=== PATIENT | male | born 1970 | race Caucasian/White ===

== ENCOUNTER 2018-10-16 07:32 | Outpatient (CLI) | payer OTHER, SELFPAY ==
--- NOTE | 2018-10-16 10:18 | DI.MRI_ITS ---
SYMPTOM/DIAGNOSIS: CEREBRAL CYSTS, G93.0 BRAIN MRI: Sagittal T 2 and axial T 2 and axial diffusion and T 2 axial BLADE and T 1 axial and T 2 axial hemo pulse sequences were performed. The study is compared with the prior examination of 11/20/13. Again noted is a large posterior fossa arachnoid cyst. No intracerebral mass is identified. The ventricles are normal. There is no evidence of restricted diffusion. The normal flow void is identified in the cerebral vessels. SUMMARY: When compared with the previous examination of 11/20/13, there has been no appreciable interval change with note again made of a large posterior fossa arachnoid cyst.
== END 2018-10-16 07:52 ==
PROVIDERS: PCP Family Medicine; Visit Provider Family Medicine
DX: G93.0 Cerebral cysts (principal)
CPT/HCPCS: 70551

== ENCOUNTER → 2021-03-20 13:32 | Outpatient (BNVA) | payer MEDICARE, SELFPAY | PROVIDERS: PCP Family Medicine; Referring Provider Family Medicine; Visit Provider Urology | DX: R35.0 Frequency of micturition (principal); Z80.42 Family history of malignant neoplasm of prostate | CPT/HCPCS: 81003; 99204 ==

== ENCOUNTER 2021-03-20 15:28 | Outpatient (REF) | payer MEDICARE, SELFPAY ==
[2021-03-20 22:53] LABS: Anion Gap 11.3 mmol/L (3-11); BUN 11 mg/dL (7-18); CO2 23.7 mmol/L (21.0-32.0); Calcium 8.9 mg/dL (8.5-10.1); Chloride 106 mmol/L (98-107); Glucose 92 mg/dL (74-106); Potassium 3.9 mmol/L (3.5-5.1); Sodium 141 mmol/L (136-145)
[2021-03-21 20:13] LABS: PSA, Diagnostic 1.1 ng/mL (0.0-3.5)
== END 2021-03-20 15:29 | disposition home or self-care (01) ==
LOC: LBN 15:28
PROVIDERS: PCP Family Medicine; Visit Provider Urology
DX: R35.0 Frequency of micturition (principal); Z80.42 Family history of malignant neoplasm of prostate
CPT/HCPCS: 80048; 84153

== ENCOUNTER 2022-04-23 01:21 | Outpatient (CLI) | payer MEDICARE, SELFPAY ==
--- NOTE | 2022-04-23 06:45 | DI.RAD_ITS ---
Exam(s) XR SHOULDER LT COMPLETE 2+V EXAM: XR SHOULDER LT COMPLETE 2+V CLINICAL HISTORY: rotator cuff injury, s46.009a, ? tear or fx. TECHNIQUE: 2D digital imaging was performed. Three views. COMPARISON: No exams were available for comparison FINDINGS: BONES: No acute fracture is present. No bony destructive lesion is seen. JOINTS: No dislocation present. Minimal spurring at the glenoid. AC joint unremarkable. SOFT TISSUE: Normal. IMPRESSION: Minimal degenerative changes. DATA REPOSITORY: RADIATION DOSE DELIVERED:
== END 2022-04-23 01:41 ==
LOC: DI 01:21
PROVIDERS: PCP Family Medicine; Visit Provider Family Medicine
DX: M19.012 Primary osteoarthritis, left shoulder (principal)
CPT/HCPCS: 73030

== ENCOUNTER 2022-06-18 01:57 | Outpatient (CLI) | payer MEDICARE, SELFPAY ==
--- NOTE | 2022-06-18 06:45 | DI.MRI_ITS ---
Exam(s) MR UPPER JOINT LT WO EXAM: MR UPPER JOINT LT WO CLINICAL HISTORY: ROTATOR CUFF INJURY,S46.009A,? ROTATOR CUFF TEAR TECHNIQUE: Multiplanar multisequence MRI of the shoulder was performed. COMPARISON: CR XR SHOULDER LT COMPLETE 2+V from 04/23/2022 FINDINGS: MARROW:There is no evidence of fracture, Hill-Sachs deformity, nor ominous osseous lesions. There are few small degenerative subarticular cysts seen in the posterolateral aspect of the humeral head. ROTATOR CUFF MECHANISM: AC JOINT/ACROMIUM: Moderate degenerative changes noted in the AC joint. Mild impingement. No promin ent downgoing osteophytes. No os acromiale. Supraspinatus: There is significant signal abnormality in the supraspinatus tendon with small area of full-thickness tear superimposed upon articular side partial tear. There is small amount of fluid i n the sub deltoid bursa. No muscle atrophy. Infraspinatus: Some tendinitis signal. No high-grade tear. No atrophy. Teres Minor: Intact. No evidence of tear nor muscle atrophy. Subscapularis/anterior cuff: Intact. No abnormal signal at the level of the multipennate insertional fibers. No significant tear nor atrophy. BICEPS TENDON: Not displaced from the intertubercular groove. Mild tenosynovitis. Not detached from the anterosuperior labrum. LABRUM: There is signal abnormality in the superior labrum posterior to the biceps insertion site con sistent with element of SLAP tear. There is some tearing in the posterior labrum also evident as wel l as some tearing in the anteriorly. Inferior labrum appears intact as does the inferior glenohumera l ligament. There is no evidence of paralabral cyst. GLENOHUMERAL JOINT: No joint effusion nor obvious loose intra-articular bodies. No chondral defects. No osteophytes. No degenerative subarticular cysts. No evidence of capsular tear. The inferior gle nohumeral ligament is intact. QUADRILATERAL SPACE: No evidence of mass in the region of the axillary nerve and dorsal circumflex hu meral vessels. Visualized triceps muscle at this level appears unremarkable. IMPRESSION: 1. Partial thickness tearing and small area of full-thickness tear in the supraspinatus tendon. No r etraction musculotendinous junction. No muscle atrophy. 2. Tendinitis signal in the infraspinatus. No full-thickness tear. No atrophy of the infraspinatus muscle belly. 3. Multilevel tearing in the glenoid labrum including an element of SLAP tear. There is no evidence of paralabral cyst. Mild increased signal in the biceps tendon without evidence of tear but there is an element of tenosynovitis of the biceps tendon sheath. DATA REPOSITORY:
== END 2022-06-18 02:17 ==
LOC: DI 01:57
PROVIDERS: PCP Family Medicine; Visit Provider Family Medicine
DX: S46.092A Other injury of muscle(s) and tendon(s) of the rotator cuff of left shoulder, initial encounter; M75.82 Other shoulder lesions, left shoulder; M75.22 Bicipital tendinitis, left shoulder; S46.812A Strain of other muscles, fascia and tendons at shoulder and upper arm level, left arm, initial encounter
CPT/HCPCS: 73221

== ENCOUNTER → 2022-06-20 08:36 | Outpatient (BNVA) | payer MEDICARE, SELFPAY | PROVIDERS: PCP Family Medicine; Referring Provider Family Medicine; Visit Provider Student in an Organized Health Care Education/Training Program | DX: M75.102 Unspecified rotator cuff tear or rupture of left shoulder, not specified as traumatic (principal); M75.52 Bursitis of left shoulder; S43.432A Superior glenoid labrum lesion of left shoulder, initial encounter; X58.XXXA Exposure to other specified factors, initial encounter | CPT/HCPCS: 99204; 99215 ==

== ENCOUNTER → 2022-07-26 10:10 | Outpatient (BNVA) | payer MEDICARE, SELFPAY | PROVIDERS: PCP Family Medicine; Referring Provider Family Medicine; Visit Provider Surgery | DX: R10.33 Periumbilical pain (principal) | CPT/HCPCS: 99203; 99242 ==

== ENCOUNTER 2022-08-20 01:04 | Outpatient (CLI) | payer MEDICARE, SELFPAY ==
--- NOTE | 2022-08-20 08:03 | DI.CT_ITS ---
Exam(s) CT ABDOMEN PELVIS W EXAM: CT ABDOMEN PELVIS W CLINICAL HISTORY: hx of umbilical hernia,appendectomy.pain umbilical,r10.33 TECHNIQUE: Imaging Protocol: Axial computed tomography images with coronal and sagittal reformatted images were created and reviewed CONTRAST MATERIAL: Intravenous: Omnipaque 350 Contrast volume:100 mL Oral: Yes COMPARISON: No exams were available for comparison FINDINGS: ABDOMEN: Lung Bases: Normal where visualized. Liver: There is decreased attenuation of the liver suggesting fatty infiltration. No measurable mass . Portal, Superior Mesenteric, and Splenic Veins: Unremarkable. Gallbladder and Biliary Tract: There are gallstones present. No biliary ductal dilatation. Pancreas: Normal density, no abnormal calcifications or inflammatory process. Spleen: Normal. Adrenals: No masses seen. Kidneys: Normal size, contour and axis. No radiodense stones or obstructive uropathy. There is a 2.4 cm simple cyst in the midpole of the left kidney. No follow-up is recommended. Abdominal Aorta: Abdominal portion non-dilated. Bowel: No obstruction or bowel wall thickening. No evidence of appendicitis. Peritoneal Cavity: No ascites, collection or mesenteric inflammatory response. No free air. Lymph Nodes: Within normal limits. Bones: Within normal limits for the patient's age. There is L5 spondylolysis and grade 1 spondylolis thesis of L5 on S1. Soft Tissues: There is a very small fat containing supraumbilical hernia. The anterior abdominal wal l is otherwise unremarkable. PELVIS: Bladder: Symmetric distention, no gross wall thickening. Reproductive Organs: Mild prostatic gland enlargement. Lymph Nodes: Within normal limits. Bones: Within normal limits for the patient's age. IMPRESSION: 1. Very small fat containing supraumbilical hernia. No other anterior abdominal wall defects are mas ses are seen. 2. Fatty infiltration of the liver. 3. Cholelithiasis. No biliary ductal dilatation. RADIATION DOSE DELIVERED: 1,895.09mGy.cm Total DLP DATA REPOSITORY: All CT scans at this facility are submitted to the National Radiology Data Registry (NRDR) Dose Index Registry (DIR) with the [employer] (A[employer]). RADIATION OPTIMIZATION: All CT scans at this facility use at least one of these dose optimization te chniques: automated exposure control; mA and/or kV adjustment per patient size (includes targeted exa ms where dose is matched to clinical indication); or iterative reconstruction.
[2022-08-20] MEDS: Omnipaque 350 MG/ML 100 ML BTL IJ (13:12)
[2022-08-20] MEDS: Normal Saline - Diluent 50 ML VIAL IJ (13:13)
[2022-08-20] MEDS: Barium Sulfate 2% W/V-Creamy Vanilla Smoothie 450 ML BTL PO (13:17)
== END 2022-08-20 01:24 ==
LOC: DI 01:04
PROVIDERS: PCP Family Medicine; Visit Provider Surgery
DX: R93.2 Abnormal findings on diagnostic imaging of liver and biliary tract (principal); K80.80 Other cholelithiasis without obstruction; K21.9 Gastro-esophageal reflux disease without esophagitis
CPT/HCPCS: 74177; J3490

== ENCOUNTER → 2022-08-23 08:48 | Outpatient (BNVA) | payer MEDICARE, SELFPAY | PROVIDERS: PCP Family Medicine; Referring Provider Family Medicine; Visit Provider Surgery | DX: K42.9 Umbilical hernia without obstruction or gangrene (principal); K80.20 Calculus of gallbladder without cholecystitis without obstruction; K21.9 Gastro-esophageal reflux disease without esophagitis | CPT/HCPCS: 99213 ==

== ENCOUNTER 2022-08-23 10:01 | Outpatient (REF) | payer MEDICARE, SELFPAY ==
[2022-08-23 10:35] LABS: Abs Immature Grans 0.03 10^3/uL (0.0-0.06); Absolute Basophil Count 0.05 10^3/uL (0.0-0.2); Absolute Eosinophil Count 0.07 10^3/uL (0.0-0.7); Absolute Lymphocyte Count 1.57 10^3/uL (1.2-3.4); Absolute Monocyte Count 0.51 10^3/uL (0.1-0.8); Absolute Neutrophil Count 3.09 10^3/uL (1.2-6.7); Basophils % 0.9; Eosinophils % 1.3; HCT 47.4 % (40.0-50.0); HGB 16.6 g/dL (13.5-17.5); Immature Grans % 0.6; Lymphocytes % 29.5; MCV 88 fL (80-95); Monocytes % 9.6; Neutrophils % 58.1; Platelet Count 161 10^3/uL (130-400); RBC 5.36 10^6/uL (4.36-5.78); WBC 5.32 10^3/uL (4.4-10.8)
[2022-08-23 10:47] LABS: ALT 81 U/L (16-63); AST 49 U/L (15-37); Alkaline Phosphatase 71 U/L (46-116); Anion Gap 9.7 mmol/L (3-11); BUN 15 mg/dL (7-18); Bilirubin, Total 0.4 mg/dL (0.2-1.0); C-Reactive Protein 0.31 mg/dL (0.0-0.3); CO2 25.3 mmol/L (21.0-32.0); CREATININE 1.1 mg/dL (0.70-1.30); Calcium 9.2 mg/dL (8.5-10.1); Calculated LDL 110 mg/dL (<100); Chloride 103 mmol/L (98-107); Cholesterol 195 mg/dL (<200); Estimated GFR 81.28 (mL/min/1.73m2); Glucose 104 mg/dL (74-106); HDL Cholesterol 48 mg/dL (40-60); Sodium 138 mmol/L (136-145); Total Protein 8.2 g/dL (6.4-8.2); Triglyceride 187 mg/dL (<150)
[2022-08-23 10:56] LABS: Hemoglobin A1C 5.6 % (<5.7)
== END 2022-08-23 10:02 | disposition home or self-care (01) ==
LOC: LBN 10:01
PROVIDERS: PCP Family Medicine; Visit Provider Surgery
DX: E66.9 Obesity, unspecified (principal); F41.9 Anxiety disorder, unspecified; G47.33 Obstructive sleep apnea (adult) (pediatric); K21.9 Gastro-esophageal reflux disease without esophagitis; K80.20 Calculus of gallbladder without cholecystitis without obstruction; M10.9 Gout, unspecified; N40.1 Benign prostatic hyperplasia with lower urinary tract symptoms; R10.33 Periumbilical pain; Z09 Encounter for follow-up examination after completed treatment for conditions other than malignant neoplasm; Z82.49 Family history of ischemic heart disease and other diseases of the circulatory system; C50.919 Malignant neoplasm of unspecified site of unspecified female breast
CPT/HCPCS: 80053; 80061; 83036; 85025; 86140

== ENCOUNTER 2022-11-02 02:08 | Outpatient (CLI) | payer MEDICARE, SELFPAY ==
[2022-11-02 10:00] LABS: Lithium 0.4 mmol/l (0.6-1.2)
== END 2022-11-02 02:09 | disposition home or self-care (01) ==
LOC: LBO 02:08
PROVIDERS: PCP Family Medicine; Visit Provider Family Medicine
DX: F31.81 Bipolar II disorder (principal); Z79.899 Other long term (current) drug therapy; Z51.81 Encounter for therapeutic drug level monitoring
CPT/HCPCS: 36415; 80178

== ENCOUNTER 2023-03-04 14:19 | Outpatient (CLI) | payer MEDICARE, SELFPAY ==
--- NOTE | 2023-03-04 14:15 | RT.EKG_ITS ---
APPROVED REPORT Exam: Resting ECG Reason for Exam: Chest tightness Patient Location: O HR:87 bpm ECG Measurements Heart Rate 87 AXIS IA 138 P 23 QRSd 101 QRS 18 QT 369 T 6 QTc 444 Conclusion Sinus rhythm...normal P axis, V-rate 50- 99 Borderline T wave abnormalities...T/QRS ratio < 1/20 or flat T
== END 2023-03-04 14:20 | disposition home or self-care (01) ==
LOC: DI.KIM 14:20
PROVIDERS: PCP Family Medicine; Visit Provider Family Medicine
DX: R07.89 Other chest pain (principal)
CPT/HCPCS: 93010

== ENCOUNTER → 2023-03-06 00:54 | Outpatient (CLI) | payer MEDICARE, SELFPAY ==
--- NOTE | 2023-03-06 07:30 | DI.RAD_ITS ---
Exam(s) XR CHEST 2V PA LATERAL EXAM: XR CHEST 2V PA LATERAL CLINICAL HISTORY: New dyspnea on exertion TECHNIQUE: 2D digital imaging was performed. COMPARISON: No exams were available for comparison FINDINGS: HEART: Normal size. Aorta: Not dilated. PULMONARY VASCULATURE: Normal. LUNGS: Clear. PLEURAL SPACE: No pleural effusion or pneumothorax. BONE:Unremarkable for age. Soft tissues: Unremarkable. IMPRESSION: No acute abnormality. DATA REPOSITORY: RADIATION DOSE DELIVERED:
[2023-03-06 09:55] LABS: D-Dimer 181 ng/mlFEU (<500)
[2023-03-06 10:14] LABS: Lithium 0.4 mmol/l (0.6-1.2)
[2023-03-06 10:15] LABS: Anion Gap 13.2 mmol/L (3-11); BUN 13 mg/dL (7-18); CO2 23.8 mmol/L (21.0-32.0); CREATININE 1.2 mg/dL (0.70-1.30); Calcium 9.3 mg/dL (8.5-10.1); Chloride 104 mmol/L (98-107); Estimated GFR 72.76 (mL/min/1.73m2); Glucose 125 mg/dL (74-106); Potassium 3.9 mmol/L (3.5-5.1); Sodium 141 mmol/L (136-145)
== END ==
PROVIDERS: PCP Family Medicine; Referring Provider Family Medicine; Visit Provider Family Medicine
DX: R06.09 Other forms of dyspnea (principal); F31.81 Bipolar II disorder
CPT/HCPCS: 36415; 80048; 71046; 80178; 85379

== ENCOUNTER → 2023-04-29 01:08 | Outpatient (CLI) | payer MEDICARE, SELFPAY ==
--- NOTE | 2023-04-29 09:30 | DI.US_ITS ---
APPROVED REPORT EXAM: Comprehensive 2D, Doppler, and color-flow Echocardiogram Patient Location: Out-Patient Manufacturing Industrial Engineer: Shaheen Broderick RDCS (AE) Indications: new onset dyspnea on exertion Conclusion 1. LA mildly dilated, other chambers normal 2. Normal LV systolic function, EF 55-60%. Normal RV function. 3. Anatomically normal valves. No significant regurgitation or stenosis. 4. No intrtacardiac shunt 5. No pericardial effusion. Wall motion Left Ventricle The left ventricle is normal size. The left ventricular systolic function is normal. The left ventric ular ejection fraction is within the normal range. There is normal left ventricular wall thickness. T here is normal LV segmental wall motion. There is no ventricular septal defect visualized. LVEF is 55 -60%. Right Ventricle The right ventricle is normal size. Right ventricular systolic function is grossly normal. Atria Left atrium is mildly dilated. Right atrium is mildly dilated. The interatrial septum is intact with no evidence for an atrial septal defect. Aortic Valve The aortic valve is normal in structure. Aortic valve is trileaflet. There is no aortic valvular sten osis. No aortic regurgitation is present. Mitral Valve Mild mitral annular calcification. No evidence of mitral valve stenosis. Trivial mitral regurgitation . Tricuspid Valve The tricuspid valve is normal in structure. There is no tricuspid valve stenosis. Trace tricuspid reg urgitation. Unable to assess PA pressure. Pulmonic Valve The pulmonary valve is normal in structure. There is no pulmonic valvular stenosis. Trivial pulmonic regurgitation. Great Vessels The aortic root is normal in size. Ascending aorta is not well visualized. Aortic arch is not well vi sualized. IVC is normal in size and collapses >50% with inspiration. Pericardium There is no pericardial effusion. 2D Dimensions IVSD d PLAX 0.82 cm M: 0.6-1.2 Ao Root d 3.43 cm M: 3.1 - 3.7 LVPW d PLAX 0.76 cm M: 0.6 - 1.2 LVID d PLAX 5.13 cm M: 4.2 - 5.8 LVDs 3.49 cm M: 2.5 - 4.0 LV EF Teichholz 59.7 % FS 31.94 % LV EDV (Teich) 125.6 mL LV ESV (Teich) 50.6 mL Stroke Vol Index (Teich) 30.24 M-Mode TAPSE 2.88 cm (M/F) >1.7 Auto EF LV EDV A4C 253.8 mL LV EDV A2C 123.0 mL LV EDV BP 178.3 mL LV ESV A4C 110.5 mL LV ESV A2C 52.2 mL LV ESV BP 78.4 mL LVEF(%) A4C 56.5 % LVEF(%) A2C 57.5 % LVEF(%) BP 56.0 % LV SV A4C 143.3 ml LV SV A2C 70.7 ml LV SV BP 99.9 ml LV CO A4C 10.3 L/min LV CO A2C 4.5 L/min LV CO BP 7.4 L/min HR A4C 71.86 BPM HR A2C 64.17 BPM LV EDV Index (BP) LA Volume LA Length A4C 5.9 cm LA Length A2C 4.7 cm LA Area A4C s 17.27 cm2 LA Area A2C s 13.23 cm2 LA Vol A4C A-L 43.18 mL LA Vol A2C A-L 31.36 mL LA Vol Biplane A-L 40.9 mL LA Vol/BSA A4C A-L LA Vol/BSA A2C A-L LA Vol/BSA BP A-L 16.5 mL/m2 LA Vol A4C MOD 44.0 mL LA Vol A2C MOD 28.7 mL LA Vol BP MOD 38.2 mL RA Volume RA Area A4C 14.5 cm2 RA ESV A4C (A-L) 38.7mL RA Vol/BSA A4C A-L RA Length A4C 4.6 cm RA ESV A4C (MOD) 37.4mL LV Diastology MV E' medial 0.092 (>0.07 m/s) MV E Vmax 0.76 (0.4-1.3 m/s) MV E/E' MED 8.20 (<14) MV A Vmax 0.65 (0.4-1.3 m/s) MV E' lateral 0.124 (>0.1 m/s) E/A Ratio 1.2 MV E/E' LAT 6.14 (<14) MV E' Average 0.108 m/s MV E/E'(average) 7.02 Aortic Valve AoV Vmax 1.20 m/s LVOT Vmax 0.89 m/s AoV Peak Grad 5.8 mmHg LVOT Peak Grad 3.2 mmHg AoV Area (Vmax) 2.64 cm2 LVOT VTI 0.198 m AoV VTI 0.232 m LVOT Mean Grad 1.5 mmHg AoV Mean Hubert. 0.87 m/s LVOT SV 70.79 mL AoV Mean Grad 3.4 mmHg LVOT Diam s 2.10 cm AoV Area (VTI) 3.05 cm2 Velocity Ratio 0.74 Mitral Valve MV DT 197 (160-240 msec) Pulmonary Valve PV Vmax 1.02 (0.5-1.5 m/s) RVOT Vmax 0.55 m/s PV Peak Grad 4.1 mmHg RVOT Peak Gr. 1.2 mmHg PV Mean Hubert 0.78 m/s RVOT VTI 0.116 m PV Mean Grad 2.6 mmHg RVOT Mean Gr. 0.6 mmHg
== END ==
PROVIDERS: PCP Family Medicine; Visit Provider Family Medicine
DX: R06.09 Other forms of dyspnea (principal)
CPT/HCPCS: 93306

== ENCOUNTER 2023-07-12 09:09 | Outpatient (REF) | payer MEDICARE, SELFPAY ==
[2023-07-12 23:57] LABS: Campylobacter PCR Negative (Negative); Salmonella PCR Negative (Negative); Shiga Toxin PCR Negative (Negative); Shigella/Enteroinvasive Ecoli Negative (Negative)
== END 2023-07-12 09:10 | disposition home or self-care (01) ==
LOC: LBN 09:09
PROVIDERS: PCP Family Medicine; Visit Provider Family Medicine
DX: R19.7 Diarrhea, unspecified (principal)
CPT/HCPCS: 87329; 87505; 87177

== ENCOUNTER 2024-01-31 02:45 | Outpatient (CLI) | payer MEDICARE, SELFPAY ==
[2024-01-31 09:10] LABS: Lithium 0.6 mmol/L (0.6-1.2)
[2024-01-31 09:12] LABS: Anion Gap 10.1 mmol/L (3-11); BUN 10 mg/dL (7-18); CO2 25.9 mmol/L (21.0-32.0); CREATININE 1.1 mg/dL (0.70-1.30); Chloride 106 mmol/L (98-107); Estimated GFR 80.27 (mL/min/1.73m2); Glucose 118 mg/dL (74-106); Potassium 4.3 mmol/L (3.5-5.1); Sodium 142 mmol/L (136-145)
== END 2024-01-31 02:46 | disposition home or self-care (01) ==
LOC: LBO 02:45
PROVIDERS: PCP Family Medicine; Referring Provider Family Medicine; Visit Provider Family Medicine
DX: Z79.899 Other long term (current) drug therapy (principal); K75.81 Nonalcoholic steatohepatitis (NASH)
CPT/HCPCS: 36415; 80048; 80178

== ENCOUNTER 2024-06-29 12:49 | Outpatient (CLI) | payer MEDICARE, SELFPAY ==
--- NOTE | 2024-06-29 11:15 | DI.RAD_ITS ---
Exam(s) XR FOOT LT COMPLETE EXAM: XR FOOT LT COMPLETE CLINICAL HISTORY: suspect L calcaneal bone spur,pain lt heel,foot,h/o gout,m79.673,m77.50. TECHNIQUE: 2D digital imaging was performed of the left foot. Three images were obtained. AP, obli que and lateral views were obtained. COMPARISON: No exams were available for comparison FINDINGS: BONES: No acute fracture is present. No bony destructive lesion is seen. There is an enthesophyte at the posterior calcaneus. There is a small plantar calcaneal spur. JOINTS: No dislocation present. The joint spaces are well maintained. SOFT TISSUE: Normal. IMPRESSION: 1. Small plantar calcaneal spur. 2. Posterior calcaneal enthesophyte. DATA REPOSITORY: RADIATION DOSE DELIVERED:
== END 2024-06-29 13:09 ==
PROVIDERS: PCP Family Medicine; Visit Provider Nurse Practitioner Adult Health
DX: Z87.39 Personal history of other diseases of the musculoskeletal system and connective tissue (principal); M79.672 Pain in left foot; M77.52 Other enthesopathy of left foot and ankle
CPT/HCPCS: 73630

== ENCOUNTER → 2024-08-19 09:15 | Outpatient (BNVA) | payer MEDICARE, SELFPAY | PROVIDERS: PCP Family Medicine; Referring Provider Family Medicine; Visit Provider Podiatrist | DX: M72.2 Plantar fascial fibromatosis (principal); M62.9 Disorder of muscle, unspecified; M79.672 Pain in left foot; Z87.39 Personal history of other diseases of the musculoskeletal system and connective tissue | CPT/HCPCS: 29580; 29850 ==

== ENCOUNTER → 2024-09-08 08:18 | Outpatient (BNVA) | payer MEDICARE, SELFPAY | PROVIDERS: PCP Family Medicine; Referring Provider Family Medicine; Visit Provider Podiatrist | DX: M72.2 Plantar fascial fibromatosis (principal); M25.572 Pain in left ankle and joints of left foot; M66.872 Spontaneous rupture of other tendons, left ankle and foot | CPT/HCPCS: 99213 ==

== ENCOUNTER 2024-12-11 03:28 | Outpatient (CLI) | payer MEDICARE, SELFPAY ==
[2024-12-11 13:43] LABS: Lithium 0.3 mmol/L (0.6-1.2)
== END 2024-12-11 03:29 | disposition home or self-care (01) ==
PROVIDERS: Absent Provider Family Medicine; PCP Family Medicine; Referring Provider Family Medicine; Visit Provider Family Medicine
DX: R45.86 Emotional lability (principal)
CPT/HCPCS: 36415; 80178

== ENCOUNTER 2025-02-05 13:00 | Outpatient (CLI) | payer MEDICARE, SELFPAY ==
[2025-02-05 13:14] LABS: HCT 44.9 % (40.0-50.0); HGB 15.6 g/dL (13.5-17.5); MCH 31.9 pg (27.0-33.0); MCHC 34.7 % (32.0-36.0); MCV 92 fL (80-95); MPV 8.9 fL (8.0-11.0); Platelet Count 167 10^3/uL (130-400); RBC 4.89 10^6/uL (4.36-5.78); RDW 12.5 % (11.8-14.1); RDW-SD 42.1 fL; WBC 7.54 10^3/uL (4.4-10.8)
[2025-02-05 14:26] LABS: ALT 63 U/L (16-63); AST 33 U/L (15-37); Albumin 3.9 g/dL (3.4-5.0); Alkaline Phosphatase 61 U/L (46-116); Anion Gap 11.4 mmol/L (3-11); BUN 14 mg/dL (7-18); Bilirubin, Total 0.4 mg/dL (0.2-1.0); CO2 26.6 mmol/L (21.0-32.0); Calcium 9.2 mg/dL (8.5-10.1); Chloride 103 mmol/L (98-107); Glucose 94 mg/dL (74-106); Potassium 4.2 mmol/L (3.5-5.1); Sodium 141 mmol/L (136-145); Total Protein 7.9 g/dL (6.4-8.2)
== END 2025-02-05 13:01 | disposition home or self-care (01) ==
LOC: LBO 13:00
PROVIDERS: PCP Family Medicine; Visit Provider Family Medicine
DX: K75.81 Nonalcoholic steatohepatitis (NASH) (principal)
CPT/HCPCS: 36415; 80053; 85027